=== PATIENT | male | born 1980 | race Caucasian/White ===

== ENCOUNTER 2017-08-04 19:20 | Emergency (ER) | payer MEDICAID, MEDICARE ==
[~2017-08-04] VITALS: Ht 165.1 cm; Wt 68.0 kg
[2017-08-04 19:26] VITALS: BP 138/74
== END 2017-08-05 01:45 | disposition home or self-care (01) ==
LOC: ER 20:27
DX: M25.561 Pain in right knee (principal); F20.9 Schizophrenia, unspecified; Z87.891 Personal history of nicotine dependence
CPT/HCPCS: 73562; 99284

== ENCOUNTER 2019-09-14 20:18 | Emergency (ER) | payer MEDICARE ==
[~2019-09-14] VITALS: Ht 154.9 cm; Wt 59.0 kg
[2019-09-14 20:29] VITALS: BP 126/63
== END 2019-09-15 04:13 | disposition left against medical advice (07) ==
LOC: ER 20:18
DX: M79.604 Pain in right leg (principal); Z53.21 Procedure and treatment not carried out due to patient leaving prior to being seen by health care provider